=== PATIENT | female | born 1985 | race Caucasian/White ===

== ENCOUNTER 2017-02-25 12:38 | Emergency (ER) | payer OTHER ==
--- NOTE | 2017-02-25 14:49 | ED NURSING NOTES ---
Clinical Report - Nurses [facility] [address] [place] [address] 02/25/2017 12:40 [id number] Triage time 12:54 Feb 25 2017. Acuity: LEVEL 3. Chief Complaint: DIZZINESS, WEAKNESS, LIGHT HEADED, NEAR-SYNCOPE and VERTIGO. EDGARD COMA SCORE: Edgard Coma Scale: 15- eyes open spontaneously (4); best verbal response- oriented x 4 (5); best motor response- obeys commands (6). --13:01 Nino Mancuso R.N. 12:54 02/25/17. BP: 134/79. HR: 78. RR: 18. O2 saturation: 100%. Temp: 98.8 F. Pain level now 0/10. --13:01 Nino Mancuso R.N. 13:07 02/25/17. --13:09 Nino Mancuso R.N. Weight: 65.7 kg stated. Height/Length: 66 inches Per Patient. BMI: 23.4. --13:00 Nino Mancuso R.N. Medications Acyclovir Oral. --12:56 Nino Mancuso R.N. Methacarbol . --12:58 Nino Mancuso R.N. Allergies Tetanus Toxoids. --12:58 Nino Mancuso R.N. History Arrived by private vehicle. Historian: patient. Accompanied by friend. This started just prior to arrival. She has had trouble walking (from dizziness). No ear pain, nausea, headache, vomiting or weakness. No fainting episodes or tinnitus. Treatment AUTOMOBILE MECHANIC ASSISTANT: None. PAST MEDICAL HX: Immunizations: up-to-date. Last normal menstrual period- 4 weeks ago. SOCIAL HX: Never smoker. Occasional alcohol use. No drug use. SELF HARM ASSESSMENT: A self harm assessment was performed. The patient answered "no" to the question "Have you recently felt down, depressed, or hopeless?" and "Do you have thoughts of harming or killing yourself?". FALL RISK ASSESSMENT: Fall risk assessment completed. No fall risk identified. NUTRITIONAL RISK ASSESSMENT: The nutritional risk assessment revealed no deficiencies. FUNCTIONAL ASSESSMENT: Functional assessment: no impairments noted. LEARNING NEEDS ASSESSMENT: The learning needs assessment revealed no barriers. ABUSE ASSESSMENT: Abuse assessment: (yes) The patient was asked "Do you feel safe in your home?". SKIN INTEGRITY ASSESSMENT: Skin integrity risk assessment completed. No skin integrity risk identified. --13:01 Nino Mancuso R.N. ( Patient heard a noise in the am and she quickly turned and then she got really dizzy she tried to stand and collapsed. Pant c/o extreme fatigue fro one week.). --13:07 Nino Mancuso R.N. ( Patient c/o chest heaviness like pressure mid sternum.). --13:09 Nino Mancuso R.N. PROBLEMS: Herpes simplex type 2 infection. Headache. Hyperthyroidism. Hyperlipidemia. Anxiety disorder. --12:59 Nino Mancuso R.N. ADDITIONAL SURGERIES: no known surgeries. Interventions ID band on patient. --13:01 Nino Mancuso R.N. PHYSICAL ASSESSMENT Ambulatory to room. GENERAL / NEURO / PSYCH: Oriented X 4. Appears in distress. Alert. Speech within normal limits. HEENT: No facial asymmetry noted. Pupils equal, round and reactive to light. RESPIRATORY: Breath sounds within normal limits. Respirations not labored. CVS: Normal sinus rhythm noted. Capillary refill less than 2 seconds. GI / : Abdomen soft and nontender. ( Last BM this am and normal.). SKIN: Skin is warm and dry. --13:08 Nino Mancuso R.N. NURSING PROGRESS NOTES 13:04 02/25/17. BP: 120/85 taken while standing. HR: 76. RR: 18. O2 saturation: 98%. 13:02 02/25/17. BP: 116/69 taken while lying. HR: 76. RR: 18. O2 saturation: 100%. 13:02 02/25/17. BP: 116/83 taken while sitting. HR: 103. RR: 18. O2 saturation: 98%. --13:06 Nino Mancuso R.N. playground monitor, pulse oximeter and NIBP monitor placed on patient. Patient gowned. Head of bed elevated 75 degrees. Reassurance given. Call light placed in reach. Side rails up x 1. Brakes of bed on. --13:08 Nino Mancuso R.N. EKG time: (13:52). EKG was performed by a anjali and shown to the ED physician. --13:38 Sravani Ellis 13:36 02/25/2017 Site #1 started via IV in the left wrist with an 20g angiocath, with aseptic technique and good blood return; one attempt. Blood drawn: rainbow set. Labeled in the presence of the patient and sent to the lab. Saline lock flushed with 10 mL saline. --13:41 Nino Mancuso R.N. 13:36 02/25/2017 Started bag #1 1000 mL IV Fluids IV NS (Saline); at 999 mL/hr over 1 hour(s) via site #1 via dial-a-flow. Allergies verified and confirmed 5 rights. IV patency established. IV site checked: no pain, redness, or swelling. IV flushed thoroughly pre- and post-medication administration. --13:41 Nino Mancuso R.N. 13:42 02/25/2017 Meclizine PO Tablets 50 mg given. Allergies verified, confirmed 5 rights and sedative warning given to the patient. --13:42 Nino Mancuso R.N. DISPOSITION / DISCHARGE 15:36 02/25/2017 Site #1 removed upon discharge. Catheter intact. Pressure dressing applied. --15:36 Nino Mancuso R.N. 15:34 02/25/17. BP: 113/75. HR: 73. RR: 22. O2 saturation: 100%. Temp: 98.5 F. Pain level now 0/10. --15:36 Nino Mancuso R.N. Departure time: 15:36 Feb 25 2017. Condition at departure: improved. No learning barriers present. Discharge instructions provided and reviewed with the patient. Reviewed warnings. Reviewed medication(s). Treatments reviewed. Reviewed referrals. Work note given. Patient verbalized understanding. Written instructions provided in Portuguese. The patient was discharged home and accompanied by apprentice carpenter. She left the Emergency Department ambulatory and via private vehicle. Supervisor Carpenters driving. --15:36 Nino Mancuso R.N. 15:36 02/25/2017 IV Fluids IV NS Discontinued: bag #1 infused upon discharge. Total amount infused: 1000 mL. IV patency established. IV site checked: no pain, redness, or swelling. IV flushed thoroughly. --15:36 Nino Mancuso R.N. Locked/Released at 02/25/2017 19:11 by Nino Mancuso R.N.
--- NOTE | 2017-02-25 14:49 | ED NURSING NOTES ---
Clinical Report - Nurses [facility] [address] [place] [address] 02/25/2017 12:40 [id number] TRI[facility] Triage time 12:54 Feb 25 2017. Acuity: LEVEL 3. Chief Complaint: DIZZINESS, WEAKNESS, LIGHT HEADED, NEAR-SYNCOPE and VERTIGO. EDGARD COMA SCORE: Edgard Coma Scale: 15- eyes open spontaneously (4); best verbal response- oriented x 4 (5); best motor response- obeys commands (6). --13:01 Nino Mancuso R.N. 12:54 02/25/17. BP: 134/79. HR: 78. RR: 18. O2 saturation: 100%. Temp: 98.8 F. Pain level now 0/10. --13:01 Nino Mancuso R.N. 13:07 02/25/17. --13:09 Nino Mancuso R.N. Weight: 65.7 kg stated. Height/Length: 66 inches Per Patient. BMI: 23.4. --13:00 Nino Mancuso R.N. Medications Acyclovir Oral. --12:56 Nino Mancuso R.N. Methacarbol . --12:58 Nino Mancuso R.N. Allergies Tetanus Toxoids. --12:58 Nino Mancuso R.N. History Arrived by private vehicle. Historian: patient. Accompanied by friend. This started just prior to arrival. She has had trouble walking (from dizziness). No ear pain, nausea, headache, vomiting or weakness. No fainting episodes or tinnitus. Treatment PHP WEB DEVELOPER: None. PAST MEDICAL HX: Immunizations: up-to-date. Last normal menstrual period- 4 weeks ago. SOCIAL HX: Never smoker. Occasional alcohol use. No drug use. SELF HARM ASSESSMENT: A self harm assessment was performed. The patient answered "no" to the question "Have you recently felt down, depressed, or hopeless?" and "Do you have thoughts of harming or killing yourself?". FALL RISK ASSESSMENT: Fall risk assessment completed. No fall risk identified. NUTRITIONAL RISK ASSESSMENT: The nutritional risk assessment revealed no deficiencies. FUNCTIONAL ASSESSMENT: Functional assessment: no impairments noted. LEARNING NEEDS ASSESSMENT: The learning needs assessment revealed no barriers. ABUSE ASSESSMENT: Abuse assessment: (yes) The patient was asked "Do you feel safe in your home?". SKIN INTEGRITY ASSESSMENT: Skin integrity risk assessment completed. No skin integrity risk identified. --13:01 Nino Mancuso R.N. ( Patient heard a noise in the am and she quickly turned and then she got really dizzy she tried to stand and collapsed. Pant c/o extreme fatigue fro one week.). --13:07 Nino Mancuso R.N. ( Patient c/o chest heaviness like pressure mid sternum.). --13:09 Nino Mancuso R.N. PROBLEMS: Herpes simplex type 2 infection. Headache. Hyperthyroidism. Hyperlipidemia. Anxiety disorder. --12:59 Nino Mancuso R.N. ADDITIONAL SURGERIES: no known surgeries. Interventions ID band on patient. --13:01 Nino Mancuso R.N. PHYSICAL ASSESSMENT Ambulatory to room. GENERAL / NEURO / PSYCH: Oriented X 4. Appears in distress. Alert. Speech within normal limits. HEENT: No facial asymmetry noted. Pupils equal, round and reactive to light. RESPIRATORY: Breath sounds within normal limits. Respirations not labored. CVS: Normal sinus rhythm noted. Capillary refill less than 2 seconds. GI / : Abdomen soft and nontender. ( Last BM this am and normal.). SKIN: Skin is warm and dry. --13:08 Nino Mancuso R.N. NURSING PROGRESS NOTES 13:04 02/25/17. BP: 120/85 taken while standing. HR: 76. RR: 18. O2 saturation: 98%. 13:02 02/25/17. BP: 116/69 taken while lying. HR: 76. RR: 18. O2 saturation: 100%. 13:02 02/25/17. BP: 116/83 taken while sitting. HR: 103. RR: 18. O2 saturation: 98%. --13:06 Nino Mancuso R.N. school lunch monitor, pulse oximeter and NIBP monitor placed on patient. Patient gowned. Head of bed elevated 75 degrees. Reassurance given. Call light placed in reach. Side rails up x 1. Brakes of bed on. --13:08 Nino Mancuso R.N. EKG time: (13:52). EKG was performed by a anjali and shown to the ED physician. --13:38 Sravani Ellis 13:36 02/25/2017 Site #1 started via IV in the left wrist with an 20g angiocath, with aseptic technique and good blood return; one attempt. Blood drawn: rainbow set. Labeled in the presence of the patient and sent to the lab. Saline lock flushed with 10 mL saline. --13:41 Nino Mancuso R.N. 13:36 02/25/2017 Started bag #1 1000 mL IV Fluids IV NS (Saline); at 999 mL/hr over 1 hour(s) via site #1 via dial-a-flow. Allergies verified and confirmed 5 rights. IV patency established. IV site checked: no pain, redness, or swelling. IV flushed thoroughly pre- and post-medication administration. --13:41 Nino Mancuso R.N. 13:42 02/25/2017 Meclizine PO Tablets 50 mg given. Allergies verified, confirmed 5 rights and sedative warning given to the patient. --13:42 Nino Mancuso R.N. DISPOSITION / DISCHARGE 15:36 02/25/2017 Site #1 removed upon discharge. Catheter intact. Pressure dressing applied. --15:36 Nino Mancuso R.N. 15:34 02/25/17. BP: 113/75. HR: 73. RR: 22. O2 saturation: 100%. Temp: 98.5 F. Pain level now 0/10. --15:36 Nino Mancuso R.N. Departure time: 15:36 Feb 25 2017. Condition at departure: improved. No learning barriers present. Discharge instructions provided and reviewed with the patient. Reviewed warnings. Reviewed medication(s). Treatments reviewed. Reviewed referrals. Work note given. Patient verbalized understanding. Written instructions provided in Botswanan. The patient was discharged home and accompanied by research chemical engineer. She left the Emergency Department ambulatory and via private vehicle. Digital Music Instructor driving. --15:36 Nino Mancuso R.N. 15:36 02/25/2017 IV Fluids IV NS Discontinued: bag #1 infused upon discharge. Total amount infused: 1000 mL. IV patency established. IV site checked: no pain, redness, or swelling. IV flushed thoroughly. --15:36 Nino Mancuso R.N. Locked/Released at 02/25/2017 19:11 by Nino Mancuso R.N.
--- NOTE | 2017-02-25 14:49 | ED ORDER SUMMARY ---
..... Patient: MERON PRAKASH OrderSheet [facility] VisitID: [id number] [place] [address] 31y, F Registration Date/Time: 02/25/2017 ORDER SHEET Weight: 65.7 kg (stated) Allergies: Tetanus Toxoids GENERAL ORDERS: CBC w Diff Urgent (13:20 02/25/2017 HBivens A.R.N.P.) (Ack 13:24 RKaruga) (13:40 LWhalen R.N.) CMP Urgent (13:02/25/2017 HBivens A.R.N.P.) (Ack 13:24 RKaruga) (13:40 LWhalen R.N.) UA-Culture if indicated Urgent (13:02/25/2017 HBivens A.R.N.P.) (Ack 13:24 RKaruga) (13:40 LWhalen R.N.) Urine Urgent (13:02/25/2017 HBivens A.R.N.P.) (Ack 13:24 RKaruga) (13:40 LWhalen R.N.) Urine Drug Screen Urgent (13:20 02/25/2017 HBivens A.R.N.P.) (Ack 13:24 RKaruga) (13:40 LWhalen R.N.) EKG - ER Stat (13:02/25/2017 HBivens A.R.N.P.) (Ack 13:24 RKaruga) (13:38 RKaruga) MEDICATION ORDERS: Meclizine PO 50 mg (NOW) (13:20 02/25/2017 HBivens A.R.N.P.) (13:42 LWhalen R.N.) IV FLUIDS: IV NS : initial bolus 1000 mL (1000 mL/hr), then none - (NOW) (13:20 02/25/2017 HBivens A.R.N.P.) (13:41 LWhalen R.N.) IV Saline Lock (13:02/25/2017 HBivens A.R.N.P.) (Ack 13:42 LWhalen R.N.) ORDER SHEET NOTES: [Electronically signed by Heena Montero (16:50 02/25/2017)] [Electronically signed by Nino Mancuso R.N. (19:11 02/25/2017)] [Electronically locked/signed by Nino Mancuso R.N. (19:11 02/25/2017)]
--- NOTE | 2017-02-25 14:49 | ED CLINICAL REPORT ---
Clinical Report - Physicians/Mid Levels [facility] [address] [place] [address] 02/25/2017 12:40 Patient: MERON PRAKASH Time Seen: 13:11; initial patient contact, initial documentation, patient care assumed. Arrived- By private vehicle. Historian- patient. HISTORY OF PRESENT ILLNESS Chief Complaint: DIZZINESS. Severity described as severe at its maximum. When seen in the E.D., severity described as severe. Modifying factors- worsened by turning head, standing up and changing position. Relieved by nothing. This started today and is still present. It was abrupt in onset and has been constant. Described as a sense of rotation and movement, sense of falling and feeling light-headed. Not described as feeling faint or weak all over or a sense of confusion. No nausea, vomiting, hearing loss, tinnitus or ear pain. Similar symptoms previously: None. Recent medical care: Not recently seen/assessed. REVIEW OF SYSTEMS No headache, double vision, fainting episodes, head injury or chest pain. No numbness. She has had generalized weakness. She has had difficulty walking. All systems otherwise negative, except as recorded above. PAST HISTORY See nurses notes. ( PROBLEMS: Herpes simplex type 2 infection. Headache. Hyperthyroidism. Hyperlipidemia. Anxiety disorder. --12:59 Nino Mancuso RLin. ADDITIONAL SURGERIES: no known surgeries.). SOCIAL HISTORY Never smoker. Occasional alcohol use. No drug use. No recent travel. Is a local resident. FAMILY HISTORY Negative. ADDITIONAL NOTES The nursing notes have been reviewed with agreement regarding the chief complaint, HPI, ROS, PMH and patient medications and allergies. PHYSICAL EXAM Vital Signs: 02/25/2017 12:54 BP: 134/79. HR: 78. RR: 18. O2 saturation: 100%. Temp: 98.8 F. Have been reviewed as normal and appear to be correct. Appearance: Alert. No acute distress. Eyes: Pupils equal, round and reactive to light. No nystagmus. Extraocular movements normal. ENT: Normal ENT inspection. TM's normal. Moist mucous membranes. Pharynx normal. Neck: Normal inspection. Neck supple. CVS: Normal heart rate and rhythm. Heart sounds normal. Pulses normal. Respiratory: No respiratory distress. Breath sounds normal. Abdomen: Soft and nontender. No organomegaly. Back: Normal inspection. Skin: Skin warm and dry. Normal skin color. No rash. Normal skin turgor. Extremities: Extremities exhibit normal ROM. No lower extremity edema. Neuro: Alert. Oriented X 3. Mood/affect normal. Speech normal. Cranial nerves normal (as tested). No cerebellar findings. No motor deficit. No sensory deficit. LABS, X-RAYS, AND EKG EKG: EKG time: (1332). No acute process. No acute ischemia. Normal EKG. Rate: 76. Normal EKG. The study has been interpreted contemporaneously by me (and dr belcher). The EKG appears to be a good tracing. Interpretation time: 1333. Laboratory Tests: UA-Culture if indicated: (DORIAN: 02/25/2017 13:18) ( [facility] 02/25/2017 13:50) Final results Test Result Flag Units (Reference) URINE COLOR YELLOW URINE APPEARANCE CLEAR URINE GLUCOSE NEGATIVE (NEGATIVE) URINE BILIRUBIN NEGATIVE (NEGATIVE) URINE KETONE NEGATIVE (NEGATIVE) URINE SPECIFIC GRAVITY <= 1.005 L (1.010-1.030) URINE PH 7.0 (5.0-8.0) URINE PROTEIN NEGATIVE (NEGATIVE) URINE UROBILINOGEN 0.2 EU/dL (0.2-1.0) URINE NITRITE NEGATIVE (NEGATIVE) URINE BLOOD NEGATIVE (NEGATIVE) URINE LEUK ESTERASE NEGATIVE (NEGATIVE) URINE RBC NONE SEEN rbc/hpf (0-1) URINE WBC NONE SEEN wbc/hpf (0-1) URINE EPITHELIAL CELLS 0-1 EPI/hpf (0-5) URINE BACTERIA NONE SEEN (NONE SEEN) URINE COMMENT CULT NOT INDICATED URINE CULTURES ARE SET-UP BASED ON THE FOLLOWING CRITERIA:POSITIVE NITRITEPOSITIVE LEUKOCYTE ESTERASEGREATER THAN 10 WHITE BLOOD CELLSMODERATE (2+) OR GREATER BACTERIA Urine: (DORIAN: 02/25/2017 13:18) ( [facility] 02/25/2017 13:43) Final results Test Result Flag Units (Reference) URINE NEGATIVE CBC w Diff: (DORIAN: 02/25/2017 13:35) ( MsgRcvd 02/25/2017 14:16) Final results Test Result Flag Units (Reference) WHITE BLOOD COUNT 5.6 K/uL (4.5-11.5) RED BLOOD COUNT 4.63 M/uL (4.00-5.20) HEMOGLOBIN 14.0 gm/dL (12.0-16.0) HEMATOCRIT 40.9 % (36.0-46.0) MEAN CELL VOLUME 89 fL (80-100) MEAN CORPUSCULAR HGB 30 pg (26-34) MEAN CORPUSCULAR HGB CONC 34 g/dL (31-37) RED CELL DISTRIBUTION WIDTH 12.8 % (11.6-14.8) PLATELET COUNT 219 K/uL (150-400) NEUTROPHIL % 60.7 % (50-75) LYMPH % 29.6 % (25-40) MONO % 7.8 % (3-14) EOSINOPHIL % 1.4 % (0-4) BASOPHIL % 0.5 % (0-2) Urine Drug Screen: (DORIAN: 02/25/2017 13:18) ( MsgRcvd 02/25/2017 14:02) Final results Test Result Flag Units (Reference) AMPHETAMINE/METHAMPHETAMINE NEGATIVE (NEGATIVE) BARBITURATE NEGATIVE (NEGATIVE) BENZODIAZEPINE NEGATIVE (NEGATIVE) CANNABINOID NEGATIVE (NEGATIVE) COCAINE NEGATIVE (NEGATIVE) ECSTASY NEGATIVE (NEGATIVE) METHADONE NEGATIVE (NEGATIVE) OPIATE NEGATIVE (NEGATIVE) The urine drug screen is a qualitative screening test fordrug overdose and abuse. All screen results should beconsidered as presumptive.Drugs screened for are as follows:BenzodiazepinesCocaineAmphetamines/MetamphetaminesTHC (Tetrahydrocannabinol)OpiatesBarbituratesEcstasyMethadonePositive results are unconfirmed. For confirmation, notifythe lab for the specimen to be sent to the reference lab.All confirmations must be performed by a differentmethodology.The ingestion of natural herbal and plant productscontaining Ephedra/Ephedra metabolites can produce in urineone or more substances capable of cross reacting withamphetamine/methamphetamine immunoassays. These testsprovide a preliminary result only. A more specificalternative chemical method must be used to obtain aconfirmed analytical result. CMP: (DORIAN: 02/25/2017 13:35) ( MsgRcvd 02/25/2017 14:02) Final results Test Result Flag Units (Reference) GLUCOSE 102 mg/dL (70-110) BUN 11 mg/dL (7-18) CREATININE 0.7 mg/dL (0.6-1.3) Estimated GFR >60 mL/min Estimated GFR- >60 mL/min Note: Persistent reduction over 3 months in eGFR<60 mL/min/1.73 m2 defines CKD. Patients with eGFR values>=60 mL/min/1.73 m2 may also have CKD if evidence ofpersistent proteinuria. Additional information may be foundat www.kidney.org. SODIUM 141 mmol/L (136-145) POTASSIUM 3.6 mmol/L (3.5-5.1) CHLORIDE 104 mmol/L (98-107) CARBON DIOXIDE 26 mmol/L (21-32) CALCIUM 9.2 mg/dL (8.5-10.1) TOTAL PROTEIN 7.7 g/dL (6.4-8.2) ALBUMIN 4.0 g/dL (3.3-5.0) BILIRUBIN, TOTAL 0.6 mg/dL (0.0-1.0) ALKALINE PHOSPHATASE 79 U/L (46-116) AST (SGOT) 19 U/L (15-37) ALT (SGPT) 31 U/L (12-78) . PROGRESS AND PROCEDURES Course of Care: Orthostatics per nurse: 13:04 02/25/17. BP: 120/85 taken while standing. HR: 76. RR: 18. O2 saturation: 98%. 13:02 02/25/17. BP: 116/69 taken while lying. HR: 76. RR: 18. O2 saturation: 100%. 13:02 02/25/17. BP: 116/83 taken while sitting. HR: 103. RR: 18. O2 saturation: 98%. --13:06 Nino Mancuso R.N. Patient counseled in person regarding the patient's stable condition, test results and diagnosis. 14:33. Differential Diagnosis: I considered cochlear disease, brainstem TIA, drug-related cause of central vertigo, near-syncope, multiple sensory deficits, anxiety, psychosis and metaphorical dizziness such as depression, chronic fatigue, etc as a possible cause of dizziness in this patient. This is a partial list of diagnoses considered. Above considerations are based on history, physical exam, reassessment, laboratory data and EKG. Differential diagnosis was discussed with patient. Disposition: Discharged home in good and improved condition (14:49). Condition: good and stable. CLINICAL IMPRESSION Acute dizziness INSTRUCTIONS Do not work today, for two days. Warnings: GENERAL WARNINGS: Return or contact your physician immediately if your condition worsens or changes unexpectedly, if not improving as expected, or if other problems arise. SPECIFICALLY, return if you develop chest pain, neck pain, jaw pain, shoulder pain, arm pain, back pain, fluttering sensation in your chest, lightheadedness, fainting, numbness, weakness or extreme fatigue. Prescription Medications: Meclizine 25 mg: Take 1 tablet orally every 8 hours as needed for dizziness. Dispense thirty (30). No refills. Follow-up: Follow up with your doctor in about three days even if well. Call for an appointment. Summary of care provided to patient. Understanding of the discharge instructions verbalized by patient. (Electronically signed by Heena Montero A.R.N.P. 02/25/2017 16:50)
--- NOTE | 2017-02-25 14:49 | ED ORDER SUMMARY ---
..... Patient: MERON PRAKASH OrderSheet [facility] VisitID: [id number] [place] [address] 31y, F Registration Date/Time: 02/25/2017 ORDER SHEET Weight: 65.7 kg (stated) Allergies: Tetanus Toxoids GENERAL ORDERS: CBC w Diff Urgent (13:20 02/25/2017 HBivens A.R.N.P.) (Ack 13:24 RKaruga) (13:40 LWhalen R.N.) CMP Urgent (13:02/25/2017 HBivens A.R.N.P.) (Ack 13:24 RKaruga) (13:40 LWhalen R.N.) UA-Culture if indicated Urgent (13:02/25/2017 HBivens A.R.N.P.) (Ack 13:24 RKaruga) (13:40 LWhalen R.N.) Urine Urgent (13:02/25/2017 HBivens A.R.N.P.) (Ack 13:24 RKaruga) (13:40 LWhalen R.N.) Urine Drug Screen Urgent (13:20 02/25/2017 HBivens A.R.N.P.) (Ack 13:24 RKaruga) (13:40 LWhalen R.N.) EKG - ER Stat (13:02/25/2017 HBivens A.R.N.P.) (Ack 13:24 RKaruga) (13:38 RKaruga) MEDICATION ORDERS: Meclizine PO 50 mg (NOW) (13:20 02/25/2017 HBivens A.R.N.P.) (13:42 LWhalen R.N.) IV FLUIDS: IV NS : initial bolus 1000 mL (1000 mL/hr), then none - (NOW) (13:20 02/25/2017 HBivens A.R.N.P.) (13:41 LWhalen R.N.) IV Saline Lock (13:02/25/2017 HBivens A.R.N.P.) (Ack 13:42 LWhalen R.N.) ORDER SHEET NOTES: [Electronically signed by Heena Montero (16:50 02/25/2017)] [Electronically signed by Nino Mancuso R.N. (19:11 02/25/2017)] [Electronically locked/signed by Nino Mancuso R.N. (19:11 02/25/2017)]
--- NOTE | 2017-02-25 19:11 | ED MAR SUMMARY ---
..... Medication Administration Record [facility] [address] [place] [address] Patient: MERON PRAKASH Visit ID: [id number] 31y, F Weight: 65.7 kg Height/Length: 66 in BMI: 23.4 ALLERGIES: Tetanus Toxoids Start 13:36 02/25/2017 Nino Mancuso R.N., Stop 15:36 02/25/2017 Nino Mancuso R.N. Medication Administered: IV NS (SALINE), Dose: IV Fluids over 1 hour(s), Rate: 999 mL/hr, Dispensed: 1000 mL bag, Site: #1 left wrist. Medication Ordered: IV NS : initial bolus 1000 mL (1000 mL/hr), then none - (NOW). Given 13:42 02/25/2017 Nino Mancuso RCoby Medication Administered: MECLIZINE [PO], Dose: 50 mg Tablets PO. Medication Ordered: Meclizine PO 50 mg (NOW).
--- NOTE | 2017-02-25 19:11 | ED MED RECONCILIATION SUMMARY ---
Patient: MERON PRAKASH Medication Reconciliation Report [facility] VisitID: [id number] [address] [place] [address] 31y, F Registration Date/Time: 02/25/2017 Weight: 65.7 kg Height/Length: 66 in. BMI: 23.4 ALLERGIES: Tetanus Toxoids The patient's Home Medications are listed below: THE FOLLOWING MEDICATIONS NEED TO BE RECONCILED: Acyclovir Oral Methacarbol The source(s) of the original Home Medication information: Not obtained. The following Medications were given to the patient in the Emergency Department: IV NS IV Fluids bolus 0, then 999 mL/hr, administered: 02/25/2017 1:36:00 PM Meclizine [PO] PO 50 mg, administered: 02/25/2017 1:42:00 PM The following Medications were prescribed to the patient: Meclizine 25 mg: Take 1 tablet orally every 8 hours as needed for dizziness. Dispense thirty (30). No refills. -- Heena Montero A.R.N.P.
--- NOTE | 2017-02-25 19:11 | ED DISCHARGE INSTRUCTIONS ---
Patient: MERON PRAKASH General Instructions [facility] VisitID: [id number] [place] [address] 31y, F Registration Date/Time: 02/25/2017 Acute dizziness INSTRUCTIONS Do not work today, for two days. Warnings: GENERAL WARNINGS: Return or contact your physician immediately if your condition worsens or changes unexpectedly, if not improving as expected, or if other problems arise. SPECIFICALLY, return if you develop chest pain, neck pain, jaw pain, shoulder pain, arm pain, back pain, fluttering sensation in your chest, lightheadedness, fainting, numbness, weakness or extreme fatigue. Prescription Medications: Meclizine 25 mg: Take 1 tablet orally every 8 hours as needed for dizziness. Dispense thirty (30). No refills. Follow-up: Follow up with your doctor in about three days even if well. Call for an appointment. Summary of care provided to patient. Understanding of the discharge instructions verbalized by patient. ADDITIONAL INFORMATION Dizziness [Uncertain Cause] Dizziness is a common symptom sometimes described as "lightheadedness" or feeling like you are going to faint. If it lasts for only a few seconds and is related to changes in position (such as getting up after lying or sitting for a long time), it is usually not a sign of anything serious. Dizziness that lasts for minutes to hours, or comes on for no apparent reason, may be a sign of a more serious problem (such as dehydration, a medicine reaction, disease of the heart or brain). Today's exam did not show an exact cause for your dizzy spell . Sometimes additional tests are required before a cause can be found. Therefore, it is important to follow up with your doctor if your symptoms continue. Home Care: 1) If a dizzy spell occurs and lasts more than a few seconds, lie down until it passes. If you are lying down, then you cannot hurt yourself by falling if you do faint. 2) Do not drive or operate dangerous equipment until the dizzy spells have stopped for at least 48 hours. 3) If dizzy spells occur with sudden standing, this may be a sign of mild dehydration. Drink extra fluids over the next few days. 4) If you recently started a new medicine or if you had the dose of a current medicine increased (especially blood pressure medicine), talk with the prescribing doctor about your symptoms. Dose adjustments may be needed. Follow Up with your doctor for further evaluation within the next seven days, if your symptoms continue. Get Prompt Medical Attention if any of the following occur: -- Worsening of your symptoms -- Fainting, headache or seizure -- Repeated vomiting -- Feeling like you or the room is spinning -- Chest, arm, neck, back or jaw pain -- Palpitations (the sense that your heart is fluttering or beating fast or hard) -- Shortness of breath -- Blood in vomit or stool (black or red color) -- Weakness of an arm or leg or one side of the face -- Difficulty with speech or vision Benign Positional Vertigo The inner ear is located behind the middle ear. It is a part of the balance center of the body. It contains small calcium particles within fluid filled canals (semi-circular canals). These particles can move out of position as a result of aging, head trauma or disease of the inner ear. Once that happens, movement of the head into certain positions may cause the particles to stimulate the inner ear and create the feeling of vertigo. Vertigo is a false feeling of motion (as if you or the room is spinning). A vertigo attack may cause sudden nausea, vomiting and heavy sweating. Severe vertigo causes a loss of balance and may result in falling. During an attack of vertigo, head movement and body position changes will worsen symptoms. An episode of vertigo may last seconds, minutes or hours. Once you are over the first episode of vertigo, it may never return. Sometimes symptoms recur off and on over several weeks or longer. Home Care: If symptoms are severe, rest quietly in bed. Change positions slowly. There is usually one position that will feel best, such as lying on one side or lying on your back with your head slightly raised on pillows. Do not drive or work with dangerous machinery for one week after symptoms disappear, in case of a sudden return of symptoms. Take medicine as prescribed to relieve your symptoms. Unless another medicine was prescribed for nausea, vomiting and vertigo, you may use [id number] motion sickness pills, such as meclizine (Bonine, Bonamine, Antivert) or dimenhydrinate (Dramamine). Follow Up with your doctor or as directed by our staff. Report any persistent ringing in the ear or hearing loss to your doctor. [NOTE: If you had a CT or MRI scan, it will be reviewed by a specialist. You will be notified of any new findings that may affect your care.] Get Prompt Medical Attention if any of the following occur: Worsening of vertigo not controlled by the medicine prescribed Repeated vomiting not controlled by the medicine prescribed Increased weakness or fainting Severe headache or unusual drowsiness or confusion Weakness of an arm or leg or one side of the face Difficulty with speech or vision Seizure Meclizine Hydrochloride Oral tablet What is this medicine? MECLIZINE (MEK li zeen) is an antihistamine. It is used to prevent nausea, vomiting, or dizziness caused by motion sickness. It is also used to prevent and treat vertigo (extreme dizziness or a feeling that you or your surroundings are tilting or spinning around). How should I use this medicine? Take this medicine by mouth with a glass of water. Follow the directions on the prescription label. If you are using this medicine to prevent motion sickness, take the dose at least 1 hour before travel. If it upsets your stomach, take it with food or milk. Take your doses at regular intervals. Do not take your medicine more often than directed. Talk to your superintendent nonselling regarding the use of this medicine in children. Special care may be needed. What side effects may I notice from receiving this medicine? Side effects that you should report to your doctor or health career development counselor as soon as possible: fainting spells fast or irregular heartbeat Side effects that usually do not require medical attention (report to your doctor or health career development counselor if they continue or are bothersome): constipation difficulty passing urine difficulty sleeping headache stomach upset What may interact with this medicine? barbiturate medicines for inducing sleep or treating seizures digoxin medicines for anxiety or sleeping problems, like alprazolam, diazepam or temazepam medicines for hay fever and other allergies medicines for mental depression medicines for movement abnormalities as in Parkinson's disease, or for stomach problems medicines for pain medicines that relax muscles What if I miss a dose? If you miss a dose, take it as soon as you can. If it is almost time for your next dose, take only that dose. Do not take double or extra doses. Where should I keep my medicine? Keep out of the reach of children. Store at room temperature between 15 and 30 degrees C (59 and 86 degrees F). Keep container tightly closed. Throw away any unused medicine after the expiration date. What should I tell my health care provider before I take this medicine? They need to know if you have any of these conditions: asthma glaucoma prostate trouble stomach problems urinary problems an unusual or allergic reaction to meclizine, other medicines, foods, dyes, or preservatives or trying to get breast-feeding What should I watch for while using this medicine? If you are taking this medicine on a regular schedule, visit your doctor or health career development counselor for regular checks on your progress. You may get dizzy, drowsy or have blurred vision. Do not drive, use machinery, or do anything that needs mental alertness until you know how this medicine affects you. Do not stand or sit up quickly, especially if you are an older patient. This reduces the risk of dizzy or fainting spells. Alcohol can increase possible dizziness. Avoid alcoholic drinks. Your mouth may get dry. Chewing sugarless gum or sucking hard candy, and drinking plenty of water may help. Contact your doctor if the problem does not go away or is severe. This medicine may cause dry eyes and blurred vision. If you wear contact lenses you may feel some discomfort. Lubricating drops may help. See your eye doctor if the problem does not go away or is severe. You have been given the following additional information: Dizziness, Unk Cause Benign Positional Vertigo Meclizine Hydrochloride Oral tablet Do not work today, for two days. (Electronically signed by Heena Montero A.R.N.P. 02/25/2017 16:50)
--- NOTE | 2017-02-25 19:11 | ED MAR SUMMARY ---
..... Medication Administration Record [facility] [address] [place] [address] Patient: MERON PRAKASH Visit ID: [id number] 31y, F Weight: 65.7 kg Height/Length: 66 in BMI: 23.4 ALLERGIES: Tetanus Toxoids Start 13:36 02/25/2017 Nino Mancuso R.N., Stop 15:36 02/25/2017 Nino Mancuso R.N. Medication Administered: IV NS (SALINE), Dose: IV Fluids over 1 hour(s), Rate: 999 mL/hr, Dispensed: 1000 mL bag, Site: #1 left wrist. Medication Ordered: IV NS : initial bolus 1000 mL (1000 mL/hr), then none - (NOW). Given 13:42 02/25/2017 Nino Mancuso RCoby Medication Administered: MECLIZINE [PO], Dose: 50 mg Tablets PO. Medication Ordered: Meclizine PO 50 mg (NOW).
--- NOTE | 2017-02-25 19:11 | ED MED RECONCILIATION SUMMARY ---
Patient: MERON PRAKASH Medication Reconciliation Report [facility] VisitID: [id number] [address] [place] [address] 31y, F Registration Date/Time: 02/25/2017 Weight: 65.7 kg Height/Length: 66 in. BMI: 23.4 ALLERGIES: Tetanus Toxoids The patient's Home Medications are listed below: THE FOLLOWING MEDICATIONS NEED TO BE RECONCILED: Acyclovir Oral Methacarbol The source(s) of the original Home Medication information: Not obtained. The following Medications were given to the patient in the Emergency Department: IV NS IV Fluids bolus 0, then 999 mL/hr, administered: 02/25/2017 1:36:00 PM Meclizine [PO] PO 50 mg, administered: 02/25/2017 1:42:00 PM The following Medications were prescribed to the patient: Meclizine 25 mg: Take 1 tablet orally every 8 hours as needed for dizziness. Dispense thirty (30). No refills. -- Heena Montero A.R.N.P.
== END 2017-02-25 15:40 | disposition home or self-care (01) ==
LOC: ED SRH 12:38
DX: R42 Dizziness and giddiness (principal); Z79.899 Other long term (current) drug therapy
CPT/HCPCS: 90004; 90100; 92760; 92761; 92762; 92763; 92764; 92765; 92766; 92767; 93070; 95059